=== PATIENT | female | born 1985 | race Caucasian/White ===

== ENCOUNTER 2019-09-27 11:11 | Emergency (ER) | payer OTHER | END 2019-09-27 11:45 | disposition home or self-care (01) | LOC: ERS 11:11 | DX: U07.1 COVID-19 (principal); I10 Essential (primary) hypertension; F17.210 Nicotine dependence, cigarettes, uncomplicated | CPT/HCPCS: 87635; 99283; U0003 ==

== ENCOUNTER 2020-02-14 14:16 | Emergency (ER) | payer OTHER, SELFPAY ==
[2020-02-14 20:31] LABS: SARS-CoV-2 MS2 Positive; SARS-CoV-2 N Gene Negative; SARS-CoV-2 S Gene Negative; SARS-CoV-2 by NAA Not Detected (NotDetected); SARS-CoV-2 orf1ab Negative
== END 2020-02-14 14:54 | disposition home or self-care (01) ==
LOC: ERS 14:16
DX: R05 Cough (principal); Z20.828 Contact with and (suspected) exposure to other viral communicable diseases; I10 Essential (primary) hypertension; F17.210 Nicotine dependence, cigarettes, uncomplicated
CPT/HCPCS: 87635; 99283; U0003

== ENCOUNTER 2020-02-28 21:13 | Emergency (ER) | payer SELFPAY ==
--- NOTE | 2020-02-28 21:53 | RAD ---
Chest one view HISTORY: Fever. Headache. FINDINGS: Cardiac silhouette and pulmonary vasculature are unremarkable. Mediastinum is midline. Subtle ill-defined parenchymal opacity projects over the right posterior medial lung base. No lobar c onsolidation or evidence of pneumothorax. IMPRESSION : Subtle right basilar parenchymal opacity/infiltrate. Clinical correlation regarding other signs and s ymptoms of right basilar pneumonitis is required.
[2020-02-29 12:15] LABS: SARS-CoV-2 MS2 Positive; SARS-CoV-2 N Gene Negative; SARS-CoV-2 S Gene Negative; SARS-CoV-2 by NAA Not Detected (NotDetected); SARS-CoV-2 orf1ab Negative
== END 2020-02-28 23:54 | disposition home or self-care (01) ==
LOC: ERS 21:13
DX: J18.9 Pneumonia, unspecified organism (principal); J06.9 Acute upper respiratory infection, unspecified; Z20.828 Contact with and (suspected) exposure to other viral communicable diseases; I10 Essential (primary) hypertension; F17.210 Nicotine dependence, cigarettes, uncomplicated
CPT/HCPCS: 71045; 87635; 87804; U0003

== ENCOUNTER 2020-08-21 13:54 | Emergency (ER) | payer SELFPAY | END 2020-08-21 16:23 | disposition left against medical advice (07) | LOC: ERS 13:54 | DX: Z53.21 Procedure and treatment not carried out due to patient leaving prior to being seen by health care provider (principal) ==

== ENCOUNTER 2020-08-21 17:37 | Emergency (ER) | payer SELFPAY | END 2020-08-21 18:58 | disposition left against medical advice (07) | LOC: ERS 17:37 | DX: Z53.21 Procedure and treatment not carried out due to patient leaving prior to being seen by health care provider (principal) ==

== ENCOUNTER 2020-10-15 20:31 | Emergency (ER) | payer SELFPAY ==
[2020-10-15 21:22] LABS: #Eosinphils 0.3 thou/uL (0.0-0.7); #Lymphocytes 2.9 thou/uL (1.20-3.40); #Monocytes 0.8 thou/uL (0.11-0.59); #Neutrophils 5.1 thou/uL (1.40-6.50); %Basophils 0.3 % (0.0-1.0); %Eosinophils 2.8 % (0.0-10.0); %Monocytes 8.7 % (0.0-10.0); %Neutrophils 56.3 % (42.0-75.0); Hemoglobin 13.2 g/dL (12.0-16.0); Mean Corpuscular HGB CONC 33.4 g/dL (32.0-36.0); Mean Corpuscular Hemoglobin 30.2 pg (27.0-31.0); Mean Corpuscular Volume 90.5 fL (78.0-98.0); Mean Platelet Volume 8.2 fL (7.4-10.4); Platelet Count 314 thou/uL (130-400); RBC Distribution Width 12.6 % (11.5-14.5); Red Blood Cell (RBC) Count 4.36 mill/uL (4.20-5.40); White Blood Cell (WBC) Count 9.1 thou/uL (4.8-10.8)
[2020-10-15 21:52] LABS: Bilirubin Negative (Negative); Blood, Urine Negative (Negative); Clarity Clear (Clear); Glucose, Urine (Dipstick) Normal (Negative); Ketone, Urine Negative (Negative); Leukocyte 25 Leu/uL (Negative); Nitrite Negative (Negative); Protein, Urine (Dipstick) Negative (Neg-Trace); RBC/HPF 0-3 HPF (0-3); Squamous Epithelial 0-3 HPF (0-3); Urobilinogen Normal mg/dL (Less than 2)
[2020-10-15 21:55] LABS: ALT (SGPT) 11 U/L (8-55); AST (SGOT) 12 U/L (5-34); Albumin 3.8 g/dL (3.5-5.0); Alkaline Phosphatase 76 U/L (40-110); Anion Gap 13 mmol/L (10-20); BUN (Urea Nitrogen) 8 mg/dL (7.0-18.7); Bilirubin, Total 0.2 mg/dL (0.2-1.2); Calc. Creatinine Clearance 0 mL/min (70-130); Calcium 9.4 mg/dL (7.8-10.44); Carbon Dioxide 25 mmol/L (22-29); Chloride 104 mmol/L (98-107); Globulin 3.1 g/dL (2.4-3.5); Glucose 91 mg/dL (70-105); Protein, Total 6.9 g/dL (6.0-8.3); Sodium 138 mmol/L (136-145)
[2020-10-15 21:57] LABS: Bacteria/HPF 3+ HPF (None Seen)
[2020-10-15] MEDS ORDERED: Ibuprofen 800 MG TAB ONE (23:19)
[2020-10-15] MEDS ORDERED: HYDROcodone/Acetaminophen 5/325 mg Tablet ONE (23:19)
== END 2020-10-15 23:25 | disposition home or self-care (01) ==
LOC: ERS 20:31
DX: N12 Tubulo-interstitial nephritis, not specified as acute or chronic (principal); I10 Essential (primary) hypertension; F17.210 Nicotine dependence, cigarettes, uncomplicated; Z79.899 Other long term (current) drug therapy
CPT/HCPCS: 36415; 80053; 81003; 81015; 85025; 87077; 87086; 87186; 99284

== ENCOUNTER 2022-03-28 22:53 | Emergency (ER) | payer SELFPAY ==
[2022-03-29] MEDS ORDERED: HYDROcodone/Acetaminophen 10/325 mg Tablet ONE (00:12)
== END 2022-03-29 00:50 | disposition home or self-care (01) ==
LOC: ERS 22:53
DX: S93.401A Sprain of unspecified ligament of right ankle, initial encounter (principal); I10 Essential (primary) hypertension; F17.210 Nicotine dependence, cigarettes, uncomplicated

== ENCOUNTER 2022-08-19 16:46 | Emergency (ER) | payer SELFPAY ==
[2022-08-19] MEDS ORDERED: Ketorolac Tromethamine 30 MG/ML VIAL ONE (17:06)
== END 2022-08-19 19:37 | disposition home or self-care (01) ==
LOC: ERS 16:46
DX: M25.571 Pain in right ankle and joints of right foot (principal); I70.90 Unspecified atherosclerosis; I10 Essential (primary) hypertension; F17.210 Nicotine dependence, cigarettes, uncomplicated
CPT/HCPCS: 93923; 96372; J1885